=== PATIENT | female | born 1960 | race Caucasian/White ===

== ENCOUNTER 2022-06-22 06:26 | Day surgery (SDC) | payer BC, SELFPAY ==
[2022-06-22 06:44] VITALS: BMI 32.4
[2022-06-22 06:52] VITALS: BP 150/76; PULSE 93; RESP 16; TEMP 36.6; O2SAT 97
[2022-06-22] MEDS: Lactated Ringers 1,000 ML 50 ML IVCONT (06:58)
--- NOTE | 2022-06-22 07:21 | HO.ANESPROP2 ---
[facility] Past Medical History Medical History (Updated 06/19/22 @ 11:04 by Amy Michaels RN) Anxiety Asthma Bronchitis Depression HTN (hypertension) Family History Family history of problems with anesthesia: No Surgical History Surgical History (Updated 06/19/22 @ 11:05 by Amy Michaels RN) Hx of colonoscopy Previous section History of Problems with Anesthesia: No Social History Social History Patient Tobacco Use Status: Former Tobacco user Quit Date: 1990 Use of substances other than those prescribed or required for medical reasons: No Are you DNR?: No Advance Directives: No Advance Directives Information Provided: Yes Meds Allergies Allergy/AdvReac Type Severity Reaction Status Date / Time No Known Allergies Allergy Verified 06/19/22 11:06 Active Medications: Current Medications Sodium Biphosphate/Sodium Phosphate (Sodium Phosphate,[place]-Dibasic 133 Ml Enema) 133 ml LA ONCE PRN PRN Reason: Poor Colonoscopy Prep Results Home Medications Medication Instructions Recorded Confirmed Last Taken Type fluticasone 500 mcg-salmeterol 50 1 puff inhalation BID 06/19/22 06/19/22 Unknown History mcg/dose blistr powdr for inhalation (Advair Diskus) montelukast 10 mg tablet 1 tab PO DAILY 06/19/22 06/19/22 Unknown History sertraline 50 mg tablet 1 tab PO DAILY 06/19/22 06/19/22 Unknown History valsartan 80 mg tablet 1 tab PO DAILY 06/19/22 06/19/22 06/22/22 History Exam Exam Date and Time: June 22, 2022 0721 Height,Weight and Vital Signs: Height 5 ft 5 in Weight 88.451 kg Last Vital Signs Temp 97.9 F 06/22/22 06:52 Pulse 93 06/22/22 06:52 Resp 16 06/22/22 06:52 BP 150/76 H 06/22/22 06:52 Pulse Ox 97 06/22/22 06:52 O2 Del Method 06/22/22 06:52 Airway Mallampati Class: III TM Dist: >3cm Neck ROM: Full Assessment and Plan Assessment Anesthesia Assessment: Anesthesia Plan Discussed and Chart Reviewed Final Anesthetic Review Family History of Problems with Anesthesia: No History of Problems with Anesthesia: No NPO: Yes ASA Class: II Final Preanesthetic Review: No Changes in Pt Med Stat, Meds/Allgs Chart Reviewed, Consent Obtained/Reviewed and Anes Risks/Benef Reviewed Patient Risk: Low Procedure Risk: Low Anesthetic Plan Anesthetic Plan: MAC: Disposition: Standard PACU
[2022-06-22 08:30] VITALS: BP 113/94; PULSE 80; RESP 15; TEMP 36.2; O2SAT 97
--- NOTE | 2022-06-22 08:32 | P.BOP_ITS ---
Brief Operative Note Date of Service: 06/22/22 Pre-op diagnosis: Screening, + Cologuard Post-op diagnosis: other (Polyps) Procedure: Colonoscopy to the cecum with bx/removal of polyp, and biopsy of polyp at 20cm Surgeon: Dixon Maldonado Anesthesia: MAC Was an Guard Entrance Registrar used for this Procedure?: No Estimated blood loss (mL): 2.0 Pathology: other (A. Transverse colon polyp B. Inflammatory Polyp at 20cm) Condition: stable Disposition: PACU
--- NOTE | 2022-06-22 08:35 | PC.NURSE ---
pt drinking gingerale no nausea
[2022-06-22 08:45] VITALS: BP 131/70; PULSE 74; RESP 18; TEMP 36.2; O2SAT 97
[2022-06-22 08:57] VITALS: BP 123/70; PULSE 67; RESP 8; TEMP 36.2; O2SAT 99
--- NOTE | 2022-06-22 20:22 | OP_ITS ---
SURGEON: Dixon Maldonado MD INDICATIONS: The patient presents for evaluation of colorectal cancer screening and positive Cologuard test. Full consent was obtained from her for this, including risks of bleeding and perforation. PREOPERATIVE DIAGNOSIS: POSTOPERATIVE DIAGNOSIS: PROCEDURE PERFORMED: Colonoscopy to cecum with biopsy and removal of polyp, and biopsies. ESTIMATED BLOOD LOSS: COMPLICATIONS: ANESTHESIA: Monitored anesthesia care. ASSISTANTS: SPECIMENS: PREOPERATIVE DIAGNOSES: Colorectal cancer screening and positive Cologuard test. POSTOPERATIVE DIAGNOSES: Colorectal cancer screening and positive Cologuard test, colon polyps, diverticulosis, and internal hemorrhoids. DESCRIPTION OF PROCEDURE: The patient was placed in the left lateral decubitus position. The digital rectal exam revealed some external hemorrhoidal tissue. The Olympus video pediatric colonoscope was entered into the rectum and advanced easily to the cecum. Once in the cecum, I did identify normal-appearing cecal pouch with appendiceal orifice and a normal-appearing ileocecal valve. The entire cecum and ileocecal valve appeared normal. Scope was slowly withdrawn assessing all mucosal surfaces carefully. Preparation was excellent. In the area of the proximal transverse colon was an approximately 3 or 4 mm polyp, which was biopsied and completely removed with cold biopsy forceps. At 20 cm was, what appeared to be, an inflammatory and friable polyp in the region of a diverticulum. This was only biopsied, given its gross appearance. I felt this was inflammatory in relation to the diverticulum, as opposed to an adenoma. There was a moderate amount of sigmoid diverticulosis. I did not visualize any other polyps, colitis, or angiodysplasia. In the rectum, scope was retroflexed visualizing some internal hemorrhoids, but no other pathology. The rectal mucosa appeared normal. The scope was straightened and withdrawn from the patient. She tolerated the procedure well and was returned to the recovery area in stable condition. IMPRESSION: 1. Colon polyps. 2. Diverticulosis. 3. Internal and external hemorrhoids. PLAN: Results of the biopsy will be checked. If the transverse colon polyp is a tubular adenoma and the polyp at 20 cm is only inflammatory, I would recommend a repeat colonoscopy in 5 years. If the transverse colon is a hyperplastic polyp and the polyp at 20 cm is only inflammatory, I would then recommend a followup colonoscopy in 10 years. If the polyp at 20 cm is adenomatous, we would then need to go back at some point, to remove it. She was advised not to use any aspirin and NSAIDs for 1 week. MD VINNY Youngblood/SOFÍA / [id number] MTDD
== END 2022-06-22 09:10 | disposition home or self-care (01) ==
PROVIDERS: PCP Nurse Practitioner Family; Visit Provider Internal Medicine
PROC: 0DJD8ZZ Inspection of Lower Intestinal Tract, Via Natural or Artificial Opening Endoscopic (ICD-10-PCS; CPT 45378; principal; 2022-06-22 07:30)
DX: R19.5 Other fecal abnormalities (principal); D12.3 Benign neoplasm of transverse colon; K63.5 Polyp of colon; K57.30 Diverticulosis of large intestine without perforation or abscess without bleeding; K64.8 Other hemorrhoids; K64.4 Residual hemorrhoidal skin tags; I10 Essential (primary) hypertension; J45.909 Unspecified asthma, uncomplicated; F41.8 Other specified anxiety disorders; Z79.51 Long term (current) use of inhaled steroids; Z79.899 Other long term (current) drug therapy; Z87.891 Personal history of nicotine dependence
CPT/HCPCS: 45380; 88305